=== PATIENT | male | born 1945 | race Caucasian/White ===

== ENCOUNTER 2017-05-30 10:15 | Inpatient (IN) | payer MEDICARE ==
[~2017-05-30] VITALS: Ht 165.1 cm; Wt 73.0 kg
[~2017-05-30 10:15] MED LIST: ACTOS15 MG OR; ACTOS15 MG PO; ALLOPURINOL300 MG OR; ALLOPURINOL300 MG PO; AMLODIPINE2.5 MG PO; BLOOD PRESSURE; BYETTA10 MC1 SC; BYETTA10 SC; BYETTA5 MCG SC; CARDURA2 MG PO; CARVEDILOL6.25 MG PO; CHERATUSSIN OR; CLARITIN10 M1 PO; CLOPIDOGREL75 MG PO; COLCHICINE0.6 MG PO; COLCRYS; COREG6.25 MG PO; DOXYCYCL HYC100 MG PO; EFFEXOR37.5 MG PO; ENDOCET1 TA1 OR; FLONASE NASAL50 MCG; FLUARIX QUADRIV1 IN1 IM; FLUZONE SPLT1 M1 IM; GLIMEPIRIDE4 MG PO; GLIPIZIDE XL10 MG OR; GLYBURIDE5 M1; GLYBURIDE5 M1 OR; GUANFACINE1 MG OR; HYDROCHLOROT12.5 MG OR; INDOMETHACIN50 MG PO; INVOKANA100 MG; LEVEMIR FL100 UNIT/M SC; LEVEMIR FLEXPEN SC; LISINOPRIL10 MG PO; LISINOPRIL5 MG OR; LISINOPRIL5 MG PO; LORTAB 5 OR; LORTAB 5/3255 MG PO; METFORMIN1000 MG OR; METFORMIN1000 MG PO; NITROSTAT0.4 MG SL; NOVOLOG FLEXPEN SC; PERCOCET 5/325M1 TAB PO; PLAVIX75 MG PO; PREDNISONE20 MG PO; SIMVASTATIN20 MG PO; SIMVASTATIN40 MG PO; SMZ-TMP DS1 TAB PO; TENEX1 MG OR; VYTORIN 10/201 TAB PO; VYTORIN 10/401 TAB OR; VYTORIN 10/401 TAB PO; XANAX0.5 MG PO; ZESTRIL10 M1 OR; ZITHROMAX250 MG PO; ZITHROMAX500 MG PO; ZYLOPRIM300 MG OR; [UNRECOGNIZED DRUG - CODE] OR
[2017-05-30 10:51] LABS: HEMOGLOBIN 16.4 g/dl (14.0-18.0); IMMATURE GRANULOCYTES 0.5 % (0.0-1.0); MEAN CELL VOLUME 88.4 fL CALC (80.0-100.0); MEAN CORPUSCULAR HGB 30.2 pG CALC (26.0-32.0); MEAN CORPUSCULAR HGB CONC 34.2 g/L CALC (32.0-36.0); NEUT# 15.77 thou/uL (1.82-7.42); RED BLOOD COUNT 5.43 mill/uL (4.70-6.10); RED CELL DISTRI WIDTH 12.9 % (11.5-15.5)
[2017-05-30 11:21] LABS: ALBUMIN 4.3 g/dL (3.2-5.0); ALKALINE PHOSPHATASE 217 u/l (38-126); ANION GAP 19 (6-22 (CALC)); BILIRUBIN, TOTAL 1.1 mg/dL (0.0-1.4); BUN 27 mg/dL (8-23); BUN/CREATININE RATIO 24 (12-20 (CALC)); CALCIUM 10.1 mg/dL (8.4-10.2); CARBON DIOXIDE 23 mmol/l (22-30); CHLORIDE 100 mmol/l (95-108); CREATININE 1.1 mg/dL (0.7-1.3); GFR > 60 ML/MIN (>=60 (CALC)); GFR FOR AFR.AMER. > 60 ML/MIN (>=60 (CALC)); GLUCOSE 283 mg/dL (82-115); POTASSIUM 4.5 mmol/l (3.5-5.1); SGOT/AST 65 u/l (19-48); SGPT/ALT 71 u/l (11-66); SODIUM 137 mmol/l (137-146); TOTAL PROTEIN 8.5 g/dL (6.3-8.2)
[2017-05-30 11:30] LABS: MYOGLOBIN 127 ng/mL (0 - 121)
[2017-05-30 16:45] VITALS: BP 148/70
[2017-05-30 19:02] LABS: URINE BILIRUBIN - DIPSTICK NEGATIVE (NEGATIVE); URINE BLOOD DIPSTICK NEGATIVE (NEGATIVE); URINE CLARITY CLEAR; URINE COLOR YELLOW; URINE GLUCOSE - DIPSTICK >=1000 mg/dL (NEGATIVE); URINE KETONE TRACE mg/dL (NEGATIVE); URINE LEUK ESTERASE NEGATIVE (NEGATIVE); URINE NITRITE - DIPSTICK NEGATIVE (Negative); URINE PH 5.5 (4.5-8.0); URINE PROTEIN - DIPSTICK NEGATIVE (NEG-TRACE); URINE UROBILINOGEN - DIPSTICK 0.2 E.U./dL (0.2)
[2017-05-30 19:10] VITALS: BP 132/76
[2017-05-30 23:07] VITALS: BP 135/83
[2017-05-31] VITALS (22 sets, daily range): BP systolic 77–198; BP diastolic 55–155
[2017-05-31 09:41] LABS: HEMATOCRIT 45.5 % (39.0-50.0); HEMOGLOBIN 15.4 g/dl (14.0-18.0); IMMATURE GRANULOCYTES 0.5 % (0.0-1.0); MEAN CORPUSCULAR HGB 30.1 pG CALC (26.0-32.0); MEAN CORPUSCULAR HGB CONC 33.8 g/L CALC (32.0-36.0); NEUT# 17.93 thou/uL (1.82-7.42); RED BLOOD COUNT 5.11 mill/uL (4.70-6.10); RED CELL DISTRI WIDTH 12.8 % (11.5-15.5)
[2017-05-31 09:59] LABS: ANION GAP 20 (6-22 (CALC)); BUN 23 mg/dL (8-23); BUN/CREATININE RATIO 25 (12-20 (CALC)); CALCIUM 9.7 mg/dL (8.4-10.2); CARBON DIOXIDE 20 mmol/l (22-30); CHLORIDE 103 mmol/l (95-108); CREATININE 0.9 mg/dL (0.7-1.3); GFR > 60 ML/MIN (>=60 (CALC)); GFR FOR AFR.AMER. > 60 ML/MIN (>=60 (CALC)); GLUCOSE 370 mg/dL (82-115); POTASSIUM 4.7 mmol/l (3.5-5.1); SODIUM 139 mmol/l (137-146)
[2017-05-31 14:14] LABS: HEMATOCRIT 46.5 % (39.0-50.0); HEMOGLOBIN 15.6 g/dl (14.0-18.0); IMMATURE GRANULOCYTES 0.6 % (0.0-1.0); MEAN CELL VOLUME 89.6 fL CALC (80.0-100.0); MEAN CORPUSCULAR HGB 30.1 pG CALC (26.0-32.0); MEAN CORPUSCULAR HGB CONC 33.5 g/L CALC (32.0-36.0); NEUT# 17.9 thou/uL (1.82-7.42); RED BLOOD COUNT 5.19 mill/uL (4.70-6.10); RED CELL DISTRI WIDTH 12.9 % (11.5-15.5)
[2017-05-31 21:14] LABS: HEMATOCRIT 45.5 % (39.0-50.0); HEMOGLOBIN 14.9 g/dl (14.0-18.0); IMMATURE GRANULOCYTES 0.8 % (0.0-1.0); MEAN CELL VOLUME 91.2 fL CALC (80.0-100.0); MEAN CORPUSCULAR HGB 29.9 pG CALC (26.0-32.0); MEAN CORPUSCULAR HGB CONC 32.7 g/L CALC (32.0-36.0); RED BLOOD COUNT 4.99 mill/uL (4.70-6.10); RED CELL DISTRI WIDTH 13.1 % (11.5-15.5)
[2017-05-31 21:19] LABS: MANUAL DIFFERENTIAL YES; PLATELET COUNT 511 thou/uL (130-400)
[2017-05-31 21:20] LABS: ANION GAP 16 (6-22 (CALC)); BUN 22 mg/dL (8-23); BUN/CREATININE RATIO 25 (12-20 (CALC)); CALCIUM 9.3 mg/dL (8.4-10.2); CARBON DIOXIDE 20 mmol/l (22-30); CHLORIDE 108 mmol/l (95-108); CREATININE 0.9 mg/dL (0.7-1.3); GFR > 60 ML/MIN (>=60 (CALC)); GFR FOR AFR.AMER. > 60 ML/MIN (>=60 (CALC)); GLUCOSE 178 mg/dL (82-115); POTASSIUM 4.7 mmol/l (3.5-5.1); SODIUM 140 mmol/l (137-146)
[2017-05-31 21:36] LABS: BAND 5 % (0-8)
[2017-06-01] VITALS (57 sets, daily range): BP systolic 72–140; BP diastolic 52–96
[2017-06-01 05:05] LABS: HEMATOCRIT 39.8 % (39.0-50.0); HEMOGLOBIN 13.2 g/dl (14.0-18.0); IMMATURE GRANULOCYTES 0.6 % (0.0-1.0); MEAN CELL VOLUME 92.1 fL CALC (80.0-100.0); MEAN CORPUSCULAR HGB 30.6 pG CALC (26.0-32.0); MEAN CORPUSCULAR HGB CONC 33.2 g/L CALC (32.0-36.0); NEUT# 16.56 thou/uL (1.82-7.42); RED BLOOD COUNT 4.32 mill/uL (4.70-6.10); RED CELL DISTRI WIDTH 13.2 % (11.5-15.5)
[2017-06-01 07:31] LABS: ALBUMIN 2.6 g/dL (3.2-5.0); ALKALINE PHOSPHATASE 152 u/l (38-126); BILIRUBIN, TOTAL 0.9 mg/dL (0.0-1.4); BUN 24 mg/dL (8-23); BUN/CREATININE RATIO 20 (12-20 (CALC)); CALCIUM 7.9 mg/dL (8.4-10.2); CARBON DIOXIDE 18 mmol/l (22-30); CHLORIDE 115 mmol/l (95-108); CREATININE 1.2 mg/dL (0.7-1.3); GFR 60 ML/MIN (>=60 (CALC)); GFR FOR AFR.AMER. > 60 ML/MIN (>=60 (CALC)); GLUCOSE 75 mg/dL (82-115); SGOT/AST 37 u/l (19-48); SGPT/ALT 100 u/l (11-66); SODIUM 141 mmol/l (137-146); TOTAL PROTEIN 5.5 g/dL (6.3-8.2)
[2017-06-01 07:55] LABS: ANION GAP 14 (6-22 (CALC)); POTASSIUM 5.5 mmol/l (3.5-5.1)
[2017-06-01 14:06] LABS: ANION GAP 15 (6-22 (CALC)); BUN 24 mg/dL (8-23); BUN/CREATININE RATIO 19 (12-20 (CALC)); CALCIUM 8.4 mg/dL (8.4-10.2); CARBON DIOXIDE 15 mmol/l (22-30); CHLORIDE 116 mmol/l (95-108); CREATININE 1.3 mg/dL (0.7-1.3); GFR 55 ML/MIN (>=60 (CALC)); GFR FOR AFR.AMER. > 60 ML/MIN (>=60 (CALC)); GLUCOSE 173 mg/dL (82-115); SODIUM 140 mmol/l (137-146)
[2017-06-01 14:09] LABS: POTASSIUM 5.7 mmol/l (3.5-5.1)
[2017-06-01 18:55] LABS: BUN 25 mg/dL (8-23); BUN/CREATININE RATIO 21 (12-20 (CALC)); CALCIUM 8.7 mg/dL (8.4-10.2); CARBON DIOXIDE 15 mmol/l (22-30); CHLORIDE 115 mmol/l (95-108); CREATININE 1.2 mg/dL (0.7-1.3); GFR 60 ML/MIN (>=60 (CALC)); GFR FOR AFR.AMER. > 60 ML/MIN (>=60 (CALC)); GLUCOSE 194 mg/dL (82-115); SODIUM 141 mmol/l (137-146)
[2017-06-01 18:57] LABS: ANION GAP 17 (6-22 (CALC)); POTASSIUM 5.7 mmol/l (3.5-5.1)
[2017-06-02] VITALS (27 sets, daily range): BP systolic 87–148; BP diastolic 56–87
[2017-06-02 06:08] LABS: HEMOGLOBIN 13.6 g/dl (14.0-18.0); IMMATURE GRANULOCYTES 0.9 % (0.0-1.0); MEAN CELL VOLUME 92.1 fL CALC (80.0-100.0); MEAN CORPUSCULAR HGB 29.8 pG CALC (26.0-32.0); MEAN CORPUSCULAR HGB CONC 32.4 g/L CALC (32.0-36.0); NEUT# 10.21 thou/uL (1.82-7.42); RED BLOOD COUNT 4.56 mill/uL (4.70-6.10); RED CELL DISTRI WIDTH 13.3 % (11.5-15.5)
[2017-06-02 06:20] LABS: BUN 26 mg/dL (8-23); BUN/CREATININE RATIO 21 (12-20 (CALC)); CALCIUM 8.8 mg/dL (8.4-10.2); CARBON DIOXIDE 17 mmol/l (22-30); CHLORIDE 112 mmol/l (95-108); CREATININE 1.2 mg/dL (0.7-1.3); GFR 60 ML/MIN (>=60 (CALC)); GFR FOR AFR.AMER. > 60 ML/MIN (>=60 (CALC)); GLUCOSE 241 mg/dL (82-115); SODIUM 139 mmol/l (137-146)
[2017-06-02 06:26] LABS: ANION GAP 15 (6-22 (CALC)); POTASSIUM 5.4 mmol/l (3.5-5.1)
[2017-06-02 18:22] LABS: ANION GAP 12 (6-22 (CALC)); BUN 26 mg/dL (8-23); BUN/CREATININE RATIO 23 (12-20 (CALC)); CALCIUM 8.7 mg/dL (8.4-10.2); CARBON DIOXIDE 21 mmol/l (22-30); CHLORIDE 110 mmol/l (95-108); CREATININE 1.1 mg/dL (0.7-1.3); GFR > 60 ML/MIN (>=60 (CALC)); GFR FOR AFR.AMER. > 60 ML/MIN (>=60 (CALC)); GLUCOSE 291 mg/dL (82-115); POTASSIUM 5.2 mmol/l (3.5-5.1); SODIUM 138 mmol/l (137-146)
[2017-06-03] VITALS (25 sets, daily range): BP systolic 109–151; BP diastolic 57–78
[2017-06-03 03:39] LABS: HEMATOCRIT 38.1 % (39.0-50.0); HEMOGLOBIN 12.6 g/dl (14.0-18.0); IMMATURE GRANULOCYTES 0.7 % (0.0-1.0); MEAN CELL VOLUME 90.3 fL CALC (80.0-100.0); MEAN CORPUSCULAR HGB 29.9 pG CALC (26.0-32.0); MEAN CORPUSCULAR HGB CONC 33.1 g/L CALC (32.0-36.0); NEUT# 7.07 thou/uL (1.82-7.42); RED BLOOD COUNT 4.22 mill/uL (4.70-6.10)
[2017-06-03 03:51] LABS: ANION GAP 15 (6-22 (CALC)); BUN 28 mg/dL (8-23); BUN/CREATININE RATIO 24 (12-20 (CALC)); CALCIUM 8.9 mg/dL (8.4-10.2); CARBON DIOXIDE 19 mmol/l (22-30); CHLORIDE 109 mmol/l (95-108); CREATININE 1.1 mg/dL (0.7-1.3); GFR > 60 ML/MIN (>=60 (CALC)); GFR FOR AFR.AMER. > 60 ML/MIN (>=60 (CALC)); GLUCOSE 425 mg/dL (82-115); POTASSIUM 5.6 mmol/l (3.5-5.1); SODIUM 137 mmol/l (137-146)
[2017-06-04] VITALS (28 sets, daily range): BP systolic 117–167; BP diastolic 58–83
[2017-06-04 05:53] LABS: ALBUMIN 2.8 g/dL (3.2-5.0); BUN 34 mg/dL (8-23); CALCIUM 8.8 mg/dL (8.4-10.2); CARBON DIOXIDE 23 mmol/l (22-30); CHLORIDE 106 mmol/l (95-108); CREATININE 1.2 mg/dL (0.7-1.3); GFR 60 ML/MIN (>=60 (CALC)); GFR FOR AFR.AMER. > 60 ML/MIN (>=60 (CALC)); GLUCOSE 359 mg/dL (82-115); MAGNESIUM 2.2 mg/dL (1.6-2.3); POTASSIUM 5.1 mmol/l (3.5-5.1); SODIUM 138 mmol/l (137-146)
== END 2017-06-04 11:42 | DRG 208 ==
LOC: ED 10:15 → ED-I 12:44 → ED 13:22 → MS2 13:23 → ICU 13:23
PROVIDERS: Emergency Medicine; Internal Medicine Nephrology; ADMIT Internal Medicine; ATTEND Internal Medicine
PROC: 5A1945Z Respiratory Ventilation, 24-96 Consecutive Hours (ICD-10-PCS; principal; 2017-05-31)
PROC: 0BH17EZ Insertion of Endotracheal Airway into Trachea, Via Natural or Artificial Opening (ICD-10-PCS; 2017-05-31)
PROC: 0T9B70Z Drainage of Bladder with Drainage Device, Via Natural or Artificial Opening (ICD-10-PCS; 2017-05-31)
PROC: 02HV33Z Insertion of Infusion Device into Superior Vena Cava, Percutaneous Approach (ICD-10-PCS; 2017-06-02)
DX: J18.9 Pneumonia, unspecified organism (principal); R65.21 Severe sepsis with septic shock; A41.9 Sepsis, unspecified organism; J80 Acute respiratory distress syndrome; E87.2 Acidosis; E78.5 Hyperlipidemia, unspecified; E87.5 Hyperkalemia; I13.10 Hypertensive heart and chronic kidney disease without heart failure, with stage 1 through stage 4 chronic kidney disease, or unspecified chronic kidney disease; E11.22 Type 2 diabetes mellitus with diabetic chronic kidney disease; N18.2 Chronic kidney disease, stage 2 (mild); D64.9 Anemia, unspecified; M10.9 Gout, unspecified; E11.65 Type 2 diabetes mellitus with hyperglycemia; I25.10 Atherosclerotic heart disease of native coronary artery without angina pectoris; T38.0X5A Adverse effect of glucocorticoids and synthetic analogues, initial encounter; Z79.4 Long term (current) use of insulin; Z95.5 Presence of coronary angioplasty implant and graft; Z79.84 Long term (current) use of oral hypoglycemic drugs; Z78.1 Physical restraint status
CPT/HCPCS: J1650; J2060; J3370; Q9967; S0164